=== PATIENT | male | born 1980 | race Caucasian/White ===

== ENCOUNTER → 2018-02-21 15:32 | Outpatient (POV) | payer BC, SELFPAY | PROVIDERS: Visit Provider Dermatology | DX: Z00.00 Encounter for general adult medical examination without abnormal findings (principal) ==

== ENCOUNTER → 2018-03-21 15:17 | Outpatient (POV) | payer BC, SELFPAY | PROVIDERS: Visit Provider Dermatology | DX: Z00.00 Encounter for general adult medical examination without abnormal findings (principal) ==

== ENCOUNTER → 2018-03-30 07:57 | Outpatient (CLI) | payer BC, SELFPAY ==
[2018-03-30 09:12] LABS: Hemoglobin A1C 5.4 % (0.0-7.0)
[2018-03-30 09:33] LABS: Alanine Aminotransferase 48 U/L (12-78); Albumin/Globulin Ratio 1.3 (1.1-1.8); Alkaline Phosphatase 71 U/L (46-116); Anion Gap 13.2 mEq/L (5-15); Aspartate Amino Transferase 34 U/L (15-37); Blood Urea Nitrogen 14 mg/dL (7-18); Calcium 9.1 mg/dL (8.5-10.1); Carbon Dioxide 30 mmol/L (21.0-32.0); Chloride 102 mmol/L (98-107); Chol/HDL Ratio 4.3 (1-3.5); Cholesterol 213 mg/dL (140-200); Creatinine,Serum 1.07 mg/dL (0.70-1.30); Estimated Glomerular Filt Rate 77 ml/min (>60); GFR (African American) 93 ML/MIN (>60); Globulin 3.1 gm/dl (1.3-3.2); Glucose 104 mg/dL (74-106); HDL Cholesterol 49 mg/dL (27-67); LDL Cholesterol 136 mg/dL (0-130); Potassium 4.2 mmoL/L (3.5-5.1); Sodium 141 mmol/L (136-145); Total Protein,Serum 7.1 gm/dL (6.4-8.2); Triglycerides 138 mg/dL (30-200); VLDL Cholesterol 28 mg/dL (0-40)
== END ==
PROVIDERS: Visit Provider Family Medicine
DX: R73.01 Impaired fasting glucose (principal); E78.5 Hyperlipidemia, unspecified
CPT/HCPCS: 36415; 80053; 80061; 83036

== ENCOUNTER → 2019-01-23 14:50 | Outpatient (CLI) | payer BC, SELFPAY ==
--- NOTE | 2019-01-23 14:54 | XR_ITS ---
PROCEDURE: XR CHEST 2V CLINICAL HISTORY: dyspnea Chest pain COMPARISON: No exams were available for comparison FINDINGS: The cardiomediastinal silhouette and pulmonary vascularity are within normal limits. The lungs are clear without infiltrates, suspicious nodules, or pleural effusions. No acute bony abnormalities. IMPRESSION: No acute findings. Dictated by: Bhavin Galvez MD 01/23/2019 15:52 Electronically signed by Bhavin Galvez MD in [place] 01/23/2019 15:52
== END ==
PROVIDERS: PCP Family Medicine; Visit Provider Urology
DX: R06.09 Other forms of dyspnea (principal)
CPT/HCPCS: 71046

== ENCOUNTER → 2019-02-01 11:53 | Outpatient (CLI) | payer BC, SELFPAY ==
--- NOTE | 2019-02-01 | CA_ITS ---
APPROVED REPORT Exam: Exercise Treadmill Technologist: Vida Nam, Ht: 5 ft 8 in Wt: 175 lbs BSA: 1.93 m2 HR: 67 bpm BP: 116/78 mmHg Rhythm: NORMAL SINUS RHYTHM,INCOMPLETE LBBB Medical History Medical History: Hyperlipidemia Medications: Lovastatin,,,,, Allergies: No known drug allergies, No known drug allergies Cardiac Risk Factors: Hyperlipidemia, FHX of CAD Stress Test Details Test: Exercise stress testing was performed using a Rhys protocol. HR Resting HR: 78 bpm Max Heart Rate (APMHR): 181 bpm Max HR Achieved: 180 bpm Target HR (85% APMHR): 153 bpm % of APMHR: 99 Recovery HR: 144 bpm BP Resting BP: 116.0/78.0 mmHg Max BP: 172.0/84.0 mmHg Recovery BP: 120.0/80.0 mmHg ECG Resting ECG: NSR/ICRBBB Clinical Exercise duration: 14:11 min Highest Stage Achieved: Exercise capacity: 14.8 METs Stress ECG Conclusion PATIENT EXERCISED 14:11 ON RHYS PROTOCOL WITH MAX HEART RATE 180 BPM WHICH IS 99% OF PM FOR AGE. MAX BP 172/84. METS = 14.8. TEST STOPPED DUE TO SOA AND FATIGUE. PATIENT HAD SHARP CHEST PAIN BELOW LEFT BREAST. OCCASIONAL FUSION BEAT. NORMAL ST RESPONSE TO EXERCISE. SHARP CHEST PAIN WITH NORMAL EKG'S DURING EXERCISE. GOOD EXERCISE TOLERANCE. MYOVIEW IMAGES REPORTED SEPARATELY Test Summary Stage 5 02:11 14.0 3.9 176 . . . . REST . . . . . . . Sitting REST 07:03 0.0 0.0 78 . 116/ 78 . . Stage 1 01:00 10.0 1.7 93 . . . . Stage 1 02:00 10.0 1.7 98 . . . . Stage 1 03:00 10.0 1.7 99 . 138/ 80 . . Stage 2 01:00 12.0 2.5 110 . . . . Stage 2 02:00 12.0 2.5 115 . . . . Stage 2 03:00 12.0 2.5 115 . 154/ 80 . . Stage 3 01:00 14.0 3.4 129 . . . . Stage 3 02:00 14.0 3.4 135 . . . . Stage 3 03:00 14.0 3.4 138 . 172/ 84 . . Stage 4 01:00 16.0 4.2 155 . . . . Stage 4 02:00 16.0 4.2 162 . . . . Stage 4 03:00 16.0 4.2 166 . . . . Stage 5 01:00 18.0 5.0 174 . . . . Stage 5 . . . . . . . Cardiolite injected Stage 5 . . . . . . . Protocol changed to Manual Treadmill Stage 5 02:00 16.0 3.9 178 . . . . Stage 5 02:11 14.0 3.9 176 . . . Stop exercise at 14:11 RECOVERY . . . . . . . Chest pain RECOVERY 01:00 0.0 0.0 144 . . . . RECOVERY 02:00 0.0 0.0 118 . 120/ 80 . . RECOVERY 03:00 0.0 0.0 112 . 144/ 85 . . RECOVERY 04:00 0.0 0.0 110 . 132/ 84 . . RECOVERY 05:00 0.0 0.0 106 . 141/ 78 . . RECOVERY 06:00 0.0 0.0 106 . 141/ 78 . . RECOVERY 07:00 0.0 0.0 108 . 128/ 77 . . RECOVERY 08:00 0.0 0.0 108 . 128/ 77 . . RECOVERY 08:21 0.0 0.0 107 . 128/ 77 . . Electronically signed by : Oscar Gonzalez, 02/02/2019 14:39:40
--- NOTE | 2019-02-01 11:57 | NM_ITS ---
APPROVED REPORT Exam: Nuclear Stress Test Indication: Chest pain, SOB, Fatigue, High cholesterol, Family history Patient Location: Outpatient Stress Tech: Emilie Nam [place] Tech:Angie Oliver, ARRT, RT (R)(N) Ht: 5 ft 8 in Wt: 175 lbs HR: 67 bpm BP: 116/78 mmHg BSA: 1.93 m2 BMI: 26.6 History: Chest pain, SOB, Fatigue, High cholesterol, Family history Procedure: Patient exercised on Rhys protocol 14:11 minutes and sec, resting heart rate 67 bpm, resting blood pressure 116/78 mmHg, with exercise maximum heart rate achived was 180 bpm which is % of the maximum predicted heart rate and blood pressure was 154/80 mmHg. Test was stopped due to SOA and leg fatigue. Patient has exercise capacity, achieved 14.8 METs of workload on treadmill, the blood pressure response to exercise was . Cardiac Stress and Resting SPECT Images: Cardiac Stress and Resting SPECT images were obtained using technetium 99m Myoview 29.2 mCi stress and 10.13 mCi at rest. EF normal at 66% No fixed or reversible defects. No evidence of ischemia or infarction Conclusion: EF normal at 66% No fixed or reversible defects. No evidence of ischemia or infarction Electronically signed by : Bhavin Galvez MD 02/02/2019 17:26:49
--- NOTE | 2019-02-01 14:33 | HMH.ITSHM ---
Current Home Medications as stated by this patient Darryn Alcantar or senior outside sales representative. []LOVASTATIN
== END ==
PROVIDERS: PCP Family Medicine; Visit Provider Internal Medicine
DX: R06.09 Other forms of dyspnea (principal); R07.9 Chest pain, unspecified; E78.5 Hyperlipidemia, unspecified; Z82.49 Family history of ischemic heart disease and other diseases of the circulatory system
CPT/HCPCS: 78452; 93017; 93306; A9502

== ENCOUNTER 2019-05-31 17:30 | Outpatient (RCR) | payer BC, SELFPAY | END 2019-05-31 18:25 | disposition home or self-care (01) | LOC: PT 17:30 | PROVIDERS: PCP Family Medicine; Visit Provider Physician Assistant | DX: M54.5 Low back pain (principal) | CPT/HCPCS: 97010; 97012; 97014; 97110; 97163; G0283 ==

== ENCOUNTER 2019-10-15 22:28 | Emergency (ER) | payer OTHER, SELFPAY ==
[2019-10-15 22:28] VITALS: BP 155/104; PULSE 71; RESP 16; TEMP 36.8; O2SAT 96; BMI 27.3
[2019-10-15 22:52] LABS: Basophils # 0.1 K/mm3 (0-0.2); Basophils % 1.2 % (0.1-2.0); Eosinophils # 0.3 K/mm3 (0.0-0.4); Eosinophils % 2.5 % (0.1-12.0); Hematocrit 46.9 % (42.0-52.0); Hemoglobin 17.1 g/dL (14.1-18.0); Lymphocytes # 3.4 K/mm3 (0.7-4.5); Lymphocytes % 33.9 % (10-50); Mean Corpuscular HGB Conc 36.3 g/dL (31.8-35.4); Mean Corpuscular Hemoglobin 32.4 pg (27.0-31.2); Mean Corpuscular Volume 89.1 fl (80-94); Mean Platelet Volume 7.8 fl (7.4-10.4); Monocytes # 0.8 K/mm3 (0.1-1.0); Neutrophils # 5.5 K/mm3 (1.8-7.8); Neutrophils % 54.4 % (37.0-80.0); Platelet Count 237 K/mm3 (142-424); Red Blood Count 5.27 M/mm3 (4.60-6.20); Red Cell Distribution Width 12.6 % (11.5-17.5)
[2019-10-15 22:53] LABS: Chloride 101 mmol/L (98-107)
[2019-10-15 22:54] LABS: Sodium 139 mmol/L (136-145)
[2019-10-15 22:56] LABS: Alanine Aminotransferase 22 U/L (12-78); Alkaline Phosphatase 78 U/L (38-126); Aspartate Amino Transferase 32 U/L (17-59); Bilirubin,Total 0.8 mg/dl (0.2-1.3); Blood Urea Nitrogen 15 mg/dl (9-20); Carbon Dioxide 28 mmol/L (22.0-30.0); Creatinine Clearance Estimated 113 mL/min (50-200); Estimated Glomerular Filt Rate 83 ml/min (>60); GFR (African American) 100 ML/MIN (>60)
[2019-10-15 22:57] LABS: Albumin Level 4.6 g/dl (3.5-5.0); Albumin/Globulin Ratio 1.5 (1.1-1.8); Calcium 9.2 mg/dl (8.4-10.2); Glucose 110 mg/dl (74-100); Total Protein,Serum 7.6 g/dl (6.3-8.2)
--- NOTE | 2019-10-15 23:16 | HMH.EDALLER ---
ED Disposition Clinical Impression: Urticaria Allergic reaction Qualifiers: Encounter type: initial encounter Qualified Code(s): T78.40XA - Allergy, unspecified, initial encounter Disposition: Home, Self-Care Condition on Discharge: Good Instructions: DI for General Allergic Reactions Additional Instructions: call pcp in am Prescriptions: predniSONE [Prednisone 20mg Tab] 20 mg PO BID #10 tab Transmission Status: Pending to [id number] Referrals: Young Estrada MD [Primary Care Provider] - - Critical Care Critical Care Time: No Attestation: On 10/15/19, the high probability of a clinically significant, sudden or life threatening deterioration of the following system(s) required my full and direct attention, intervention and personal management. The time I documented below is in addition to time spent performing reported procedures but includes the following listed in this critical care notation. Medical Decision Making - Medical Records Medical records reviewed: Yes: I reviewed the patient's medical records. - Fredis Inquiry Pt receiving controlled substance: No Vital Signs: 10/15/19 22:28 Temperature 98.2 F Temperature Source Oral Pulse Rate [Left Radial] 71 Respiratory Rate 16 Blood Pressure [Right Arm] 155/104 H Blood Pressure Mean [Right Arm] 121 Blood Pressure Source [Right Arm] Automatic Cuff Blood Pressure Position [Right Arm] Sitting 02 Sat by Pulse Oximetry 96 Oxygen Delivery Method Room Air - Lab Data Lab results reviewed: Yes: I reviewed the patient's lab results. Lab Results 10/15/19 22:37: WBC 10.0, RBC 5.27, Hgb 17.1, Hct 46.9, MCV 89.1, MCH 32.4 H, MCHC 36.3 H, RDW 12.6, Plt Count 237, MPV 7.8, Neut % (Auto) 54.4, Lymph % (Auto) 33.9, [place] % (Auto) 8.0, Eos % (Auto) 2.5, Baso % (Auto) 1.2, Neut # (Auto) 5.5, Lymph # (Auto) 3.4, [place] # (Auto) 0.8, Eos # (Auto) 0.3, Baso # (Auto) 0.1 10/15/19 22:37: Sodium 139, Potassium 4.0, Chloride 101, Carbon Dioxide 28, Anion Gap 14.0, BUN 15, Creatinine 1.00, Estimated Creat Clear 113, Estimated GFR 83, Est GFR ( Amer) 100, Glucose 110 H, Calcium 9.2, Total Bilirubin 0.8, AST 32, ALT 22, Alkaline Phosphatase 78, Total Protein 7.6, Albumin 4.6, Globulin 3.0, Albumin/Globulin Ratio 1.5 Result diagrams: 10/15/19 22:37 10/15/19 22:37 Orders (Tests/Meds): ED MEDICATIONS Generic Name Dose Route Start Last Admin Trade Name Freq PRN Reason Stop Dose Admin Sodium Chloride 1,000 mls @ 999 mls/hr 10/15/19 23:00 Sod Chlor 0.9% 1000ml Bag IV 10/16/19 00:00 .Q1H1M DEAN Sodium Chloride 8 ml 10/15/19 22:46 Sodium Chloride 0.9% 10ml Vial IV 11/14/19 22:45 NEEDED PRN dilute pepcid Discontinued Medications Generic Name Dose Route Start Last Admin Trade Name Freq PRN Reason Stop Dose Admin Diphenhydramine HCl 25 mg 10/15/19 22:46 10/15/19 22:50 Benadryl 50mg/1ml Vial IV 10/15/19 22:47 25 mg ONCE ONE Administration Famotidine 20 mg 10/15/19 22:46 10/15/19 22:50 Pepcid 20mg/2ml Vial IV 10/15/19 22:47 20 mg ONCE ONE Administration Methylprednisolone Sodium Succinate 125 mg 10/15/19 22:46 10/15/19 22:50 Solu-Medrol 125mg/2ml Vial IV 10/15/19 22:47 125 mg ONCE ONE Administration Allergic React/Insect Bite HPI - General Chief complaint: Allergic Reaction Stated complaint: Hives Time Seen by Provider: 10/15/19 22:45 Mode of Arrival - ED Triage: Ambulatory Source of Information: Patient, Spouse, Medical Record Limitations: No Limitations - History of Present Illness HPI narrative: after going to bed dev hives and itching with no tongue swelling but lips swelling MD complaint: allergic reaction, hives Onset (ago): hour(s) Exposure: unknown Symptoms: rash, itching, lip swelling Treatment prior to arrival: none Allergies/Adverse Reactions: Allergies Allergy/AdvReac Type Severity Reaction Status Date / Time No Known Allergies Allergy Verified
--- NOTE | 2019-10-15 23:30 | PC.NURSE ---
this nurse reassessed pt. pt reports relief of itchiness and soreness of upper lip. redness on trunk and extremities has gone done exponentially at this time
[2019-10-16 00:07] VITALS: BP 127/83; PULSE 69; RESP 16; TEMP 36.7; O2SAT 93
== END 2019-10-16 00:12 | disposition home or self-care (01) ==
PROVIDERS: Emergency Provider Emergency Medicine; PCP Family Medicine
DX: L50.0 Allergic urticaria (principal); T78.40XA Allergy, unspecified, initial encounter; E78.5 Hyperlipidemia, unspecified
CPT/HCPCS: 80053; 85025; 96374; 96375; 99281; 99282

== ENCOUNTER 2020-03-07 10:05 | Emergency (ER) | payer OTHER, SELFPAY ==
[2020-03-07 10:15] VITALS: BP 156/86; PULSE 98; RESP 18; TEMP 36.9; O2SAT 99; BMI 27.3
--- NOTE | 2020-03-07 10:22 | HMH.EDUTC ---
[facility] [place] Disposition Clinical Impression: Viral syndrome Right otitis media Qualifiers: Otitis media type: suppurative Chronicity: acute Recurrence: non-recurrent Spontaneous tympanic membrane rupture: without spontaneous rupture Qualified Code(s): H66.001 - Acute suppurative otitis media without spontaneous rupture of ear drum, right ear Disposition: Home, Self-Care Condition on Discharge: Good Instructions: DI for Viral Syndrome Additional Instructions: Drink plenty of fluids. Take tylenol for pain or fever. Return if you begin to have difficulty breathing. Follow up with your regular doctor. GO TO THE ER FOR ANY WORSENING SYMPTOMS Prescriptions: Benzonatate [Tessalon Perle 100mg Cap] 100 mg PO TIDP PRN #30 cap PRN Reason: Cough Transmission Status[facility] Azithromycin [Z-Aden 250mg Tab*] 250 mg PO UD DOSE PK #6 tab Transmission Status: [facility] Referrals: Young Estrada MD [Primary Care Provider] - Time of Disposition: 10:29 Medical Decision Making - Medical Records Medical records reviewed: No: I reviewed the patient's medical records. - Fredis Inquiry Pt receiving controlled substance: No Vital Signs: 03/07/20 10:15 03/07/20 10:32 Temperature 98.4 F 98.4 F Temperature Source Oral Oral Pulse Rate 98 H Pulse Rate [Radial] 98 H Respiratory Rate 18 18 Blood Pressure 156/86 H Blood Pressure [Right Arm] 156/86 H Blood Pressure Mean [Right Arm] 109 Blood Pressure Source Automatic Cuff Blood Pressure Source [Right Arm] Automatic Cuff Blood Pressure Position Sitting Blood Pressure Position [Right Arm] Sitting 02 Sat by Pulse Oximetry 99 Oxygen Delivery Method Room Air Room Air - Lab Data Lab results reviewed: Yes: I reviewed the patient's lab results. Lab Results 03/07/20 10:17: Influenza Type A Ag Negative, Influenza Type B Ag Negative Orders (Tests/Meds): ORDERS Category Date Time Status Covid-19 Nasal PCR Sendout Antoine Routine Lab 03/07/20 10:15 Received [facility] [place] HPI - General Stated complaint: headache, fever, cough Time Seen by Provider: 03/07/20 10:22 Mode of Arrival: Ambulatory Source of Information: Patient Limitations: No Limitations Description of Symptoms (Recalled from Triage Doc. by RN): Headache, fever, cough, body aches, bilateral ear pain x 2 days HEENT Symptoms (Recalled from RN notes): Yes Resp Symptoms (Recalled from RN notes): No Skin Symptoms (Recalled from RN notes): No MS Symptoms (Recalled from RN notes): No Functional Status (Recalled from RN notes): wnl - History of Present Illness Provider Complaint: He c/o fever up to 99.9, cough, right ear pain for the past 2 days. - Related Data Home Medications Medication Instructions Recorded Confirmed lovastatin 40 mg tablet 40 mg PO DAILY 01/23/19 02/07/19 Previous Rx's Medication Instructions Recorded Oseltamivir Phosphate [Tamiflu 75 mg PO BID #10 cap 06/05/19 75mg Capsule] predniSONE [Prednisone 20mg 20 mg PO BID #10 tab 10/16/19 Tab] Azithromycin [Z-Aden 250mg Tab*] 250 mg PO UD DOSE PK #6 tab 03/07/20 Benzonatate [Tessalon Perle 100mg 100 mg PO TIDP PRN #30 cap 03/07/20 Cap] Allergies Allergy/AdvReac Type Severity Reaction Status Date / Time No Known Allergies Allergy Verified 02/07/19 13:58 - Worker's Comp Is this a Worker's Comp case?: No [facility] History - Hepatitis A Screen Drug use history?: No High risk sexual behaviors?: No History of sexually transmitted infection?: No Currently employed?: No Childcare worker?: No Do you have indoor plumbing?: Yes Do you have electricity?: Yes Attestation statement:: This patient has been screened for Hepatitis A risk factors. I have reviewed the patient's past medical history: Yes Medical History: Reports:: Hyperlipidemia Denies:: Cancer, Diabetes Mellitus Type 1, Diabetes Mellitus Type 2, MRSA Other Surgeries: Yes: Appendectomy Amputatio
[2020-03-07 10:32] VITALS: BP 156/86; PULSE 98; RESP 18; TEMP 36.9; O2SAT 99
[2020-03-07 10:37] LABS: UTC Influenza A Antigen Negative (Negative)
[2020-03-07 10:38] LABS: UTC Influenza B Antigen Negative (Negative)
[2020-03-08 17:44] LABS: Covid-19 Nasal PCR Sendout Lex Not Detected
== END 2020-03-07 10:36 | disposition home or self-care (01) ==
PROVIDERS: Emergency Provider Nurse Practitioner Family; PCP Family Medicine
DX: Z20.828 Contact with and (suspected) exposure to other viral communicable diseases (principal); B34.9 Viral infection, unspecified; H66.001 Acute suppurative otitis media without spontaneous rupture of ear drum, right ear; E78.5 Hyperlipidemia, unspecified; Z79.899 Other long term (current) drug therapy
CPT/HCPCS: 87804; 99201; U0004

== ENCOUNTER 2020-03-08 18:08 | Emergency (ER) | payer OTHER, SELFPAY ==
[2020-03-08 18:09] VITALS: BP 125/88; PULSE 110; RESP 28; TEMP 38.4; O2SAT 98; BMI 25.1
--- NOTE | 2020-03-08 18:44 | XR_ITS ---
PROCEDURE: XR CHEST PORTABLE CLINICAL HISTORY: sob Cough and shortness of breath COMPARISON: CR XR CHEST 2V from 01/23/2019 FINDINGS: The cardiomediastinal silhouette and pulmonary vascularity are within normal limits. The lungs are clear without infiltrates, suspicious nodules, or pleural effusions. No acute bony abnormalities. IMPRESSION: No acute findings. Dictated by: Bhavin Galvez MD 03/08/2020 22:14 Bhavin Galvez MD in [place] 03/08/2020 22:14
[2020-03-08 18:52] LABS: Basophils % 0.5 % (0.1-2.0); Eosinophils # 0.1 K/mm3 (0.0-0.4); Hematocrit 46.6 % (42.0-52.0); Lymphocytes # 0.5 K/mm3 (0.7-4.5); Lymphocytes % 5.7 % (10-50); Mean Corpuscular HGB Conc 34.3 g/dL (31.8-35.4); Mean Corpuscular Hemoglobin 30.3 pg (27.0-31.2); Mean Corpuscular Volume 88.3 fl (80-94); Mean Platelet Volume 7.1 fl (7.4-10.4); Monocytes # 0.5 K/mm3 (0.1-1.0); Monocytes % 5.2 % (1.7-9.3); Neutrophils # 7.5 K/mm3 (1.8-7.8); Neutrophils % 87.5 % (37.0-80.0); Platelet Count 175 K/mm3 (142-424); Red Blood Count 5.28 M/mm3 (4.60-6.20); Red Cell Distribution Width 12.2 % (11.5-17.5); White Blood Count 8.5 K/mm3 (4.8-10.8)
[2020-03-08 18:58] LABS: MANUAL DIFFERENTIAL MANUAL DIFFERENTIAL (MANUAL DIFF); Potassium 4.2 mmoL/L (3.5-5.1); Sodium 137 mmol/L (136-145)
[2020-03-08 18:59] LABS: Chloride 103 mmol/L (98-107)
[2020-03-08 19:01] LABS: Alanine Aminotransferase 90 U/L (12-78); Albumin Level 4.6 g/dl (3.5-5.0); Albumin/Globulin Ratio 1.4 (1.1-1.8); Alkaline Phosphatase 98 U/L (38-126); Anion Gap 12.2 mEq/L (5-15); Aspartate Amino Transferase 86 U/L (17-59); Bilirubin,Total 0.9 mg/dl (0.2-1.3); Blood Urea Nitrogen 11 mg/dl (9-20); Calcium 9.4 mg/dl (8.4-10.2); Carbon Dioxide 26 mmol/L (22.0-30.0); Creatinine Clearance Estimated 109 mL/min (50-200); Estimated Glomerular Filt Rate 82 ml/min (>60); GFR (African American) 100 ML/MIN (>60); Globulin 3.2 g/dL (1.3-3.2); Glucose 147 mg/dl (74-100); Total Protein,Serum 7.8 g/dl (6.3-8.2)
--- NOTE | 2020-03-08 19:01 | HMH.EDGENADL ---
ED Disposition Clinical Impression: Acute viral syndrome Acute bronchiolitis Qualifiers: Bronchiolitis organism: unspecified organism Qualified Code(s): J21.9 - Acute bronchiolitis, unspecified Disposition: Home, Self-Care Condition on Discharge: Good Instructions: Acute Bronchitis Prescriptions: Promethazine HCl/Codeine [Phenergan w/Codeine 6.25mg/10mg 5mL Udc] 5 ml PO TID #120 syrup Prescription Printed Albuterol Sulfate [Proair Hfa] 8.5 gm IH TID #1 [email or web address] Prescription Printed Referrals: Young Estrada MD [Primary Care Provider] - - Critical Care Critical Care Time: No Attestation: On 03/08/20, the high probability of a clinically significant, sudden or life threatening deterioration of the following system(s) required my full and direct attention, intervention and personal management. The time I documented below is in addition to time spent performing reported procedures but includes the following listed in this critical care notation. Medical Decision Making - Medical Records Medical records reviewed: Yes: I reviewed the patient's medical records. - Fredis Inquiry Pt receiving controlled substance: No Vital Signs: 03/08/20 18:09 Temperature 101.2 F H Temperature Source Oral Pulse Rate [Radial] 110 H Respiratory Rate 28 H Blood Pressure [Right Arm] 125/88 Blood Pressure Mean [Right Arm] 100 Blood Pressure Position [Right Arm] Sitting 02 Sat by Pulse Oximetry 98 Oxygen Delivery Method Room Air - Lab Data Lab Results 03/08/20 18:42: WBC 8.5, RBC 5.28, Hgb 16.0, Hct 46.6, MCV 88.3, MCH 30.3, MCHC 34.3, RDW 12.2, Plt Count 175, MPV 7.1 L, Neut % (Auto) 87.5 H, Lymph % (Auto) 5.7 L, [place] % (Auto) 5.2, Eos % (Auto) 1.0, Baso % (Auto) 0.5, Neut # (Auto) 7.5, Lymph # (Auto) 0.5 L, [place] # (Auto) 0.5, Eos # (Auto) 0.1, Baso # (Auto) 0.0, Total Counted 100, Neutrophils % (Manual) 88 H, Lymphocytes % (Manual) 6 L, Monocytes % (Manual) 6, Platelet Estimate Normal, RBC Morphology Normal 03/08/20 18:42: Sodium 137, Potassium 4.2, Chloride 103, Carbon Dioxide 26, Anion Gap 12.2, BUN 11, Creatinine 1.00, Estimated Creat Clear 109, Estimated GFR 82, Est GFR ( Amer) 100, Glucose 147 H, Calcium 9.4, Total Bilirubin 0.9, AST 86 H, ALT 90 H, Alkaline Phosphatase 98, Total Protein 7.8, Albumin 4.6, Globulin 3.2, Albumin/Globulin Ratio 1.4 Result diagrams: 03/08/20 18:42 03/08/20 18:42 Orders (Tests/Meds): ED MEDICATIONS Generic Name Dose Route Start Last Admin Trade Name Freq PRN Reason Stop Dose Admin Sodium Chloride 1,000 mls @ 999 mls/hr 03/08/20 19:00 03/08/20 19:24 Sod Chlor 0.9% 1000ml Bag IV 03/08/20 20:00 999 mls/hr .Q1H1M DEAN Administration Discontinued Medications Generic Name Dose Route Start Last Admin Trade Name Freq PRN Reason Stop Dose Admin Ketorolac Tromethamine 30 mg 03/08/20 18:49 03/08/20 19:24 Ketorolac 30mg/Ml Vial IM 03/08/20 18:50 30 mg ONCE ONE Administration Promethazine HCl/Codeine 5 ml 03/08/20 18:49 03/08/20 19:24 Promethazine W/Codeine 6.25mg/10mg 5ml Udc PO 03/08/20 18:50 5 ml ONCE ONE Administration ORDERS Category Date Time Status XR chest portable Stat Exams 03/08/20 18:44 Taken - Reevaluation(s) Time: 19:31 Reevaluation #1: On reevaluation, patient is feeling much better. Coughing has improved. Patient's coronavirus was found to be negative as well as influenza. I did instruct patient that he needs to continue his full completion of his antibiotic regimen. He will be discharged with antitussives. Patient does need reexamination in 48 hours. He was given strict return precautions. Verbalized understanding. Medical Decision Narrative: 40-year-old male presented to the emergency department with cough and difficulty breathing. The patient was seen yesterday and he was placed on azithromycin as well as a cough suppressants. He states he is unsure of his coronavirus status. Patient does have a fev
[2020-03-08 19:10] LABS: Lymphocytes % 6 % (10-50); Monocytes % 6 % (2-9); Neutrophils % 88 % (42-76); Platelet Estimate Normal; RBC Morphology Normal; Total Cells Counted 100
[2020-03-08 19:44] VITALS: BP 112/87; PULSE 87; RESP 12; TEMP 36.8; O2SAT 99
== END 2020-03-08 19:44 | disposition home or self-care (01) ==
PROVIDERS: Emergency Provider Emergency Medicine; PCP Family Medicine
DX: J21.9 Acute bronchiolitis, unspecified (principal); B34.9 Viral infection, unspecified; E78.5 Hyperlipidemia, unspecified
CPT/HCPCS: 71045; 80053; 85007; 85025; 96365; 96375; 99282

== ENCOUNTER 2020-07-07 18:01 | Emergency (ER) | payer OTHER, SELFPAY ==
[2020-07-07 18:15] VITALS: BP 133/92; PULSE 80; RESP 16; TEMP 37.1; O2SAT 98; BMI 28.2
[2020-07-07 18:38] VITALS: BP 127/85; PULSE 88; RESP 14; TEMP 36.6
--- NOTE | 2020-07-07 18:38 | HMH.EDUTC ---
[facility] [place] Impression: Right otitis media Qualifiers: Otitis media type: suppurative Chronicity: acute Recurrence: non-recurrent Spontaneous tympanic membrane rupture: without spontaneous rupture Qualified Code(s): H66.001 - Acute suppurative otitis media without spontaneous rupture of ear drum, right ear Sinusitis Qualifiers: Sinusitis location: unspecified location Chronicity: acute Recurrence: non-recurrent Qualified Code(s): J01.90 - Acute sinusitis, unspecified Disposition: Home, Self-Care Condition on Discharge: Good Instructions: Middle Ear Infection, DI for Sinusitis Additional Instructions: Drink plenty of fluids. Take tylenol or ibuprofen for pain or fever. Take the medications as directed. Follow up with your regular doctor. GO TO THE ER FOR ANY WORSENING SYMPTOMS Prescriptions: Amoxicillin/Potassium Clav [Augmentin 875-125 Tablet] 1 tab PO Q12H 10 Days #20 tab Transmission Status: Received by [facility] predniSONE [Deltasone 10mg tablet] 10 mg PO BID 3 Days #6 tab Transmission Status: Received by [facility] Referrals: Young Estrada MD [Primary Care Provider] - Time of Disposition: 18:44 Medical Decision Making - Medical Records Medical records reviewed: No: I reviewed the patient's medical records. - Fredis Inquiry Pt receiving controlled substance: No Vital Signs: 07/07/20 18:15 07/07/20 18:38 Temperature 98.7 F 98 F Temperature Source Oral Pulse Rate 88 Pulse Rate [Right] 80 Respiratory Rate 16 14 Blood Pressure 127/85 Blood Pressure [Right Arm] 133/92 H Blood Pressure Mean [Right Arm] 105 Blood Pressure Source [Right Arm] Automatic Cuff Blood Pressure Position [Right Arm] Sitting 02 Sat by Pulse Oximetry 98 [facility] [place] - General Stated complaint: Right side of head and Ear pain Time Seen by Provider: 07/07/20 18:38 Mode of Arrival: Ambulatory Source of Information: Patient Limitations: No Limitations Description of Symptoms (Recalled from Triage Doc. by RN): pt is having a R ear ache that aches all into the right side of his face and head. HEENT Symptoms (Recalled from RN notes): Yes (R ear and face pressure and pain) Resp Symptoms (Recalled from RN notes): No Skin Symptoms (Recalled from RN notes): No MS Symptoms (Recalled from RN notes): No Functional Status (Recalled from RN notes): na - History of Present Illness Provider Complaint: He states that he has had right ear pain and right sided sinus pressure and tenderness for the past 2 days. - Related Data Home Medications Medication Instructions Recorded Confirmed lovastatin 40 mg tablet 40 mg PO DAILY 01/23/19 02/07/19 Previous Rx's Medication Instructions Recorded Oseltamivir Phosphate [Tamiflu 75 mg PO BID #10 cap 06/05/19 75mg Capsule] predniSONE [Prednisone 20mg 20 mg PO BID #10 tab 10/16/19 Tab] Azithromycin [Z-Aden 250mg Tab*] 250 mg PO UD DOSE PK #6 tab 03/07/20 Benzonatate [Tessalon Perle 100mg 100 mg PO TIDP PRN #30 cap 03/07/20 Cap] Albuterol Sulfate [Proair Hfa] 8.5 gm IH TID #1 hfa.aer.ad 03/08/20 Promethazine HCl/Codeine 5 ml PO TID #120 syrup 03/08/20 [Phenergan w/Codeine 6.25mg/10mg 5mL Udc] Amoxicillin/Potassium Clav 1 tab PO Q12H 10 Days #20 tab 07/07/20 [Augmentin 875-125 Tablet] predniSONE [Deltasone 10mg tablet] 10 mg PO BID 3 Days #6 tab 07/07/20 Allergies Allergy/AdvReac Type Severity Reaction Status Date / Time No Known Allergies Allergy Verified 07/07/20 18:18 - Worker's Comp Is this a Worker's Comp case?: No [facility] [place] History - Hepatitis A Screen Drug use history?: No High risk sexual behaviors?: No History of sexually transmitted infection?: No Currently employed?: No Childcare worker?: No Do you have indoor plumbing?: Yes Do you have electricity?: Yes Attestation statement:: This patient has been screened for Hepatitis A risk factors. I have reviewed the patient's past medical
== END 2020-07-07 18:54 | disposition home or self-care (01) ==
PROVIDERS: Emergency Provider Nurse Practitioner Family; PCP Family Medicine
DX: H66.001 Acute suppurative otitis media without spontaneous rupture of ear drum, right ear (principal); J01.90 Acute sinusitis, unspecified; Z79.899 Other long term (current) drug therapy; E78.5 Hyperlipidemia, unspecified
CPT/HCPCS: 99202; G0463

== ENCOUNTER → 2020-10-31 08:19 | Outpatient (CLI) | payer OTHER, SELFPAY ==
--- NOTE | 2020-10-31 08:47 | US_ITS ---
PROCEDURE: US ABDOMEN COMPLETE CLINICAL INDICATION: ABD PAIN Abdominal pain, palpable area to the right of the umbilical region. COMPARISON: No exams were available for comparison FINDINGS: PANCREAS: Pancreatic body and head have an unremarkable sonographic appearance. The tail is not well visualized due to overlying bowel gas. LIVER: No focal liver lesions demonstrated. Homogeneous echogenicity. No intrahepatic biliary ductal dilatation evident. There is appropriate direction of blood flow within a non dilated portal vein RIGHT KIDNEY: Unremarkable. Normal size and echogenicity. No hydronephrosis LEFT KIDNEY: Unremarkable. Normal size and echogenicity. No hydronephrosis GALLBLADDER: No gallstones, gallbladder wall thickening, pericholecystic fluid, or biliary dilatation. AORTA: No evidence of aneurysmal dilatation. SPLEEN: Unremarkable. Normal size and echogenicity ASCITES: None demonstrated. Evaluation of the abdominal wall at the palpable area of concern a shows a small heterogeneous area of slight increased echogenicity etiology indeterminate possibly due to an area of lipomatosis involvement. IMPRESSION: There is slight increased echogenicity to the right the umbilical region at the area of palpable concern within the subcutaneous tissues. This is nonspecific and of questionable clinical significance. Possibly due to an area of fatty infiltration. If symptoms persist, CT or MRI may provide further evaluation. Otherwise negative abdominal ultrasound Dictated by: Bhavin Galvez MD 10/31/2020 13:54 Bhavin Galvez MD in [place] 10/31/2020 13:54
== END ==
PROVIDERS: PCP Family Medicine; Visit Provider Family Medicine
DX: R10.33 Periumbilical pain (principal)
CPT/HCPCS: 76700

== ENCOUNTER 2021-02-15 10:23 | Emergency (ER) | payer OTHER, SELFPAY ==
[2021-02-15 10:30] VITALS: BP 148/88; PULSE 82; RESP 18; TEMP 37.1; O2SAT 97; BMI 29.0
[2021-02-15 10:44] LABS: UTC Strep Screen (Rapid) Negative (Negative)
--- NOTE | 2021-02-15 11:07 | HMH.EDUTC ---
[facility] [place] Disposition Clinical Impression: Sinusitis Qualifiers: Sinusitis location: unspecified location Chronicity: unspecified Qualified Code(s): J32.9 - Chronic sinusitis, unspecified Disposition: Home, Self-Care Condition on Discharge: Good Instructions: Sinusitis, DI for Sinusitis Additional Instructions: *Monitor Temp, Over the counter Motrin or Tylenol as directed/as needed Tylenol every 4 hours and Motrin every 6 hours (as long as your family doctor has told you that you can take it) for fever or pain. and straight to ER if unable to lower temp less than 101.0 after medication given *Warm salt water gargles may help to soothe the throat *Throat Lozenges *Warm fluids like tea with honey may help to soothe the throat *Sleep elevated *Humidifier/Vaporizer *Flonase 2 sprays in each nostril daily but be aware that it may take 2-3 days before you notice improvement Take medication as prescribed Return if needed Follow up IMMEDIATELY for new or worsening symptoms or no Noticeable improvement over the next 48-72 hours. 911 for difficulty breathing or swallowing Prescriptions: Amoxicillin/Potassium Clav [Augmentin 875-125 Tablet] 1 tab PO Q12H 7 Days #14 tab Transmission Status: P[facility] to [id number] predniSONE [Deltasone 10mg tablet] 10 mg PO BID 5 Days #10 tab Transmission Status: Pending to [facility] Fluticasone Propionate [Flonase 50mcg nasal spray 16gm] 1 spr NS DAILY #1 each Transmission Status: P[facility] to [facility] Referrals: Young Estrada MD [Primary Care Provider] - As needed Forms: Work/School Release Time of Disposition: 11:16 Medical Decision Making - Fredis Inquiry Pt receiving controlled substance: No Fredis was queried for this patient: No Vital Signs: 02/15/21 10:30 Temperature 98.7 F Temperature Source Oral Pulse Rate [Left Brachial] 82 Respiratory Rate 18 Blood Pressure [Left Arm] 148/88 H Blood Pressure Mean [Left Arm] 108 Blood Pressure Source [Left Arm] Automatic Cuff Blood Pressure Position [Left Arm] Sitting 02 Sat by Pulse Oximetry 97 Oxygen Delivery Method Room Air - Lab Data Lab results reviewed: Yes: I reviewed the patient's lab results. Lab Results 02/15/21 10:39: Strep Scn Rapid Clinic Negative Orders (Tests/Meds): ORDERS Category Date Time Status Strep Screen Confirmation Stat Micro 02/15/21 10:39 Received [facility] [place] HPI - General Stated complaint: sore throat, cough, congestion Time Seen by Provider: 02/15/21 11:08 Mode of Arrival: Ambulatory Source of Information: Patient Limitations: No Limitations Description of Symptoms (Recalled from Triage Doc. by RN): PATIENT C/O HEADACHE, EAR ACHE, COUGH, RUNNY NOSE AND SINUS PRESSURE X 8 DAYS HEENT Symptoms (Recalled from RN notes): Yes Resp Symptoms (Recalled from RN notes): Yes Skin Symptoms (Recalled from RN notes): No MS Symptoms (Recalled from RN notes): No Functional Status (Recalled from RN notes): WNL - History of Present Illness Provider Complaint: Patient states that he hasnt felt well for over a week State that he has been having sinus pain and pressure along with cough, headache and pain in both ears States that today he felt tender around his eyes and his teeth hurt so he came in to get checked out - Related Data Home Medications Medication Instructions Recorded Confirmed lovastatin 40 mg tablet 40 mg PO DAILY 01/23/19 02/15/21 Previous Rx's Medication Instructions Recorded Amoxicillin/Potassium Clav 1 tab PO Q12H 7 Days #14 tab 02/15/21 [Augmentin 875-125 Tablet] Fluticasone Propionate [Flonase 1 spr NS DAILY #1 each 02/15/21 50mcg nasal spray 16gm] predniSONE [Deltasone 10mg tablet] 10 mg PO BID 5 Days #10 tab 02/15/21 Allergies Allergy/AdvReac Type Severity Reaction Status Date / Time No Known Allergies Allergy Verified 07/07/20 18:18 - Worker's Comp Is this a Worker's Comp case?: No [facility] History - Hepatitis A Screen
[2021-02-15 11:30] VITALS: BP 148/88; PULSE 82; RESP 18; TEMP 37.1; O2SAT 97
== END 2021-02-15 11:35 | disposition home or self-care (01) ==
PROVIDERS: Emergency Provider Nurse Practitioner; PCP Family Medicine
DX: J32.9 Chronic sinusitis, unspecified (principal); J02.9 Acute pharyngitis, unspecified
CPT/HCPCS: 87880; 99202; G0463

== ENCOUNTER 2021-04-06 22:49 | Emergency (ER) | payer OTHER, SELFPAY ==
[2021-04-06 22:50] VITALS: BP 166/92; PULSE 84; RESP 16; TEMP 36.8; O2SAT 97; BMI 27.3
--- NOTE | 2021-04-06 23:31 | HMH.EDGENADL ---
ED Disposition Clinical Impression: Urticaria Disposition: Home, Self-Care Condition on Discharge: Good Referrals: Young Estrada MD [Primary Care Provider] - - Critical Care Critical Care Time: No Attestation: On 04/06/21, the high probability of a clinically significant, sudden or life threatening deterioration of the following system(s) required my full and direct attention, intervention and personal management. The time I documented below is in addition to time spent performing reported procedures but includes the following listed in this critical care notation. Medical Decision Making - Fredis Inquiry Pt receiving controlled substance: No Vital Signs: 04/06/21 22:50 Temperature 98.2 F Temperature Source Oral Pulse Rate [Right Radial] 84 Respiratory Rate 16 Blood Pressure [Right Arm] 166/92 H Blood Pressure Mean [Right Arm] 116 Blood Pressure Source [Right Arm] Automatic Cuff Blood Pressure Position [Right Arm] Sitting 02 Sat by Pulse Oximetry 97 Oxygen Delivery Method Room Air Orders (Tests/Meds): ED MEDICATIONS Discontinued Medications Generic Name Dose Route Start Last Admin Trade Name Freq PRN Reason Stop Dose Admin Dexamethasone 10 mg 04/06/21 23:31 04/06/21 23:32 Dexamethasone 4mg Tablet PO 04/06/21 23:32 10 mg ONCE ONE Administration Famotidine 40 mg 04/06/21 23:31 04/06/21 23:33 Famotidine 20mg Tablet PO 04/06/21 23:32 40 mg ONCE ONE Administration Medical Decision Narrative: 41 yo male presents for evaluation of rash. History and physical exam consistent with urticarial rash, possible allergic reaction. No known trigger. Similar rash 20 years ago and 1 year ago, separate incidents without known common factor. Patient has single system involvement, does not require epinephrine for allergic reaction at this time. Pt is HDS, afebrile, NAD. Took benadryl at home already, will give patient 10 mg po decadron and 40 mg po famotidine. Patient on reassessment with improving rash, no other body systems involved, tolerating PO, remains HDS on room air. Given ED return precautions. General Adult HPI - General Chief complaint: Allergic Reaction Stated complaint: hives/rash possible allergic reaction Time Seen by Provider: 04/06/21 23:25 Mode of Arrival: Ambulatory Limitations: No Limitations Description of Symptoms (Recalled from ER Triage Doc. by RN): Pt says he is iching all over for the past hour. Pt had same episode in 2019. Pt has patent airway. Errythema to all extremities and trunk. - History of Present Illness HPI narrative: 41 yo male w/ hx HLD presents for rash. Patient reports noticing rash on arms and legs that seemed to spread to his whole body since about 9 pm tonight. Pt states the rash was itchy and raised and at times burning in sensation. This was accompanied by puffiness and tingling sensation in his lips. He took 2x tab benadryl prior to arrival with improvement of rash and resolution of the abnormal sensations in his lips. He has not had chest pain, n/v/d, trouble breathing, changes to jewelry/linens/soaps/medications/detergents/furniture/pets, but does note he ate brownies his son brought home around 8 pm that he had not eaten before. other family members ate the same brownies without similar symptoms. - Related Data Home Medications Medication Instructions Recorded Confirmed lovastatin 40 mg tablet 40 mg PO DAILY 01/23/19 04/06/21 Allergies Allergy/AdvReac Type Severity Reaction Status Date / Time No Known Allergies Allergy Verified 07/07/20 18:18 [facility] History - Hepatitis A Screen Drug use history?: No High risk sexual behaviors?: No History of sexually transmitted infection?: No Currently employed?: No Childcare worker?: No Do you have indoor plumbing?: Yes Do you have electricity?: Yes Attestation statement:: This patient has been screened for Hepatitis A risk factors. Medical History: Reports:: Hyperlipidemia De
[2021-04-07 00:16] VITALS: BP 134/89; PULSE 79; RESP 16; TEMP 37.2; O2SAT 98
== END 2021-04-07 00:17 | disposition home or self-care (01) ==
PROVIDERS: Emergency Provider Student in an Organized Health Care Education/Training Program; PCP Family Medicine
DX: L50.0 Allergic urticaria (principal); E78.5 Hyperlipidemia, unspecified
CPT/HCPCS: 99282

== ENCOUNTER 2021-04-20 18:00 | Emergency (ER) | payer OTHER, SELFPAY ==
[2021-04-20 18:20] VITALS: BP 138/90; PULSE 87; RESP 17; TEMP 36.9; O2SAT 100; BMI 27.3
--- NOTE | 2021-04-20 18:39 | HMH.EDUTC ---
[facility] [place] Disposition Clinical Impression: Acute viral syndrome Disposition: Home, Self-Care Condition on Discharge: Good Instructions: DI for Fever (Symptom) -- Adult, DI for COVID-19 (Suspected or Confirmed ), Preventing the Spread of Coronavirus Discharge Instructions Additional Instructions: *Monitor Temp, Over the counter Motrin or Tylenol as directed/as needed Tylenol every 4 hours and Motrin every 6 hours (as long as your family doctor has told you that you can take it) for fever or pain. and straight to ER if unable to lower temp less than 101.0 after medication given *Warm salt water gargles may help to soothe the throat *Throat Lozenges *Warm fluids like tea with honey may help to soothe the throat *Sleep elevated *Humidifier/Vaporizer Over the counter Robitussin may help with cough Your throat swab was sent for culture. Those results are typically sent to your primary care. Be sure to follow up in 2-3 days with your family doctor/primary care physician if no improvement so they can review those result and treat if necessary. If you don?t have a primary care doctor, I recommend you get one but in the mean time, you will have to return to a walk in clinic Follow up IMMEDIATELY for new or worsening symptoms or no Noticeable improvement over the next 48-72 hours. 911 for difficulty breathing or swallowing You were tested for today for COVID19 your test result should be back in the next 24-48 hours, you check your results on the [facility] my health portal if you have trouble logging on you may call for assistance to help you set up an account to see your results You was given a handout with instructions for Self Quarantine and Self isolation for while you wait on test results and what to do if they are positive If you are positive the Health Dept will be contacting you also Make sure to take your Vitamins Vit. C Vit D and Zinc if you can take them Referrals: Young Estrada MD [Primary Care Provider] - As needed Forms: Work/School Release Time of Disposition: 19:14 Medical Decision Making - Fredis Inquiry Pt receiving controlled substance: No Fredis was queried for this patient: No Vital Signs: 04/20/21 18:20 04/20/21 19:02 Temperature 98.4 F 98.4 F Temperature Source Oral Pulse Rate 87 Pulse Rate [Right Brachial] 87 Respiratory Rate 17 17 Blood Pressure 138/90 Blood Pressure [Right Arm] 138/90 Blood Pressure Mean [Right Arm] 106 Blood Pressure Source [Right Arm] Automatic Cuff Blood Pressure Position [Right Arm] Sitting 02 Sat by Pulse Oximetry 100 Oxygen Delivery Method Room Air - Lab Data Lab results reviewed: Yes: I reviewed the patient's lab results. Lab Results 04/20/21 18:10: Group A Strep Rapid Negative 04/20/21 18:33: Influenza Type A Ag Negative, Influenza Type B Ag Negative Orders (Tests/Meds): ORDERS Category Date Time Status Covid-19 Nasal PCR ([facility]) Routine Lab 04/20/21 18:10 Received Strep Screen Confirmation Stat Micro 04/20/21 18:10 Received [facility] UTC HPI - General Stated complaint: covid test strep test Time Seen by Provider: 04/20/21 18:39 Mode of Arrival: Ambulatory Source of Information: Patient Limitations: No Limitations Description of Symptoms (Recalled from Triage Doc. by RN): PATIENT C/O HEADACHE, BODY ACHES, CHILLS AND COUGH SINCE YESTERDAY HEENT Symptoms (Recalled from RN notes): Yes Resp Symptoms (Recalled from RN notes): Yes Skin Symptoms (Recalled from RN notes): No MS Symptoms (Recalled from RN notes): No Functional Status (Recalled from RN notes): WNL - History of Present Illness Provider Complaint: Patient states that his tested positive for COVID yesterday and then he is having bodyaches, chills, headache and cough last night States that today he has continued to have symptoms so he came in wanting to get tested - Related Data Home Medications Medication Instructions Recorded Confirmed lovastatin 40 mg tablet 40 mg PO DAILY 01/23/19 0
[2021-04-20 18:46] LABS: UTC Influenza A Antigen Negative (Negative); UTC Influenza B Antigen Negative (Negative)
[2021-04-20 19:02] VITALS: BP 138/90; PULSE 87; RESP 17; TEMP 36.9; O2SAT 100
[2021-04-20 19:09] LABS: Strep Scrn Group A (Rapid) Negative (Negative)
== END 2021-04-20 19:23 | disposition home or self-care (01) ==
PROVIDERS: Emergency Provider Nurse Practitioner; PCP Family Medicine
DX: B34.9 Viral infection, unspecified (principal); Z20.822 Contact with and (suspected) exposure to COVID-19
CPT/HCPCS: 87430; 87804; 99203; C9803; G0463; U0003; U0005

== ENCOUNTER 2023-11-26 09:22 | Emergency (ER) | payer BC, SELFPAY ==
[2023-11-26 09:30] VITALS: BP 132/82; PULSE 79; RESP 20; TEMP 36.8; O2SAT 99; BMI 27.3
--- NOTE | 2023-11-26 09:35 | EXP.UTC ---
Discharge Plan Disposition Patient Disposition: Home, Self-Care Condition: Good Prescriptions Prescriptions: New valacyclovir [Valtrex] 1 gram tablet 1,000 mg PO BID 10 Days Qty: 20 0RF methylprednisolone [Medrol (Aden)] 4 mg tablets,dose pack 4 mg PO DIRECTED Qty: 21 0RF lidocaine [Lidoderm] 5 % adhesive patch,medicated 1 patch topical DAILY Qty: 30 0RF Rx Instructions: leave on most painful area for up to 12 hrs No Action atorvastatin 40 mg tablet 40 mg PO DAILY Patient Comments: TAKE 1 TABLET BY MOUTH ONCE DAILY Referrals Follow up/Referrals: Young Estrada MD [Primary Care Provider] - See instructions Activity Restrictions/Add. Instructions Additional Instructions/Restrictions: Follow up with Dr Estrada if not improving Clinical Impressions Clinical Impression: Shingles, Close exposure to 2019-nCoV Instructions Patient Instructions: DI for Shingles Print Language Print Language: Amharic Discharge ED Provider: Niharika Marinelli [facility] General Stated complaint: poss shingles on left side/back covid exposure Time Seen by Provider: 11/26/23 09:35 History of Present Illness Provider Complaint: Rash on left lower back started last night. Now starting in left groin. Painful and itchy. Was also exposed to COVID earlier this week. Onset (ago): day(s) (1) Location: back Relieving factors: none Exacerbating factors: none Associated symptoms: denies other symptoms Treatments prior to arrival: none Related Data Home Medications ?Medication ?Instructions ?Recorded ?Confirmed atorvastatin 40 mg tablet 40 mg PO DAILY 06/28/23 11/26/23 Previous Rx's ?Medication ?Instructions ?Recorded lidocaine 5 % topical patch 1 patch topical DAILY #30 ea 11/26/23 (Lidoderm) methylprednisolone 4 mg tablets in 4 mg PO DIRECTED #21 tabs 11/26/23 a dose pack (Medrol (Aden)) valacyclovir 1 gram tablet 1,000 mg PO BID 10 days #20 tabs 11/26/23 (Valtrex) Allergies Allergy/AdvReac Type Severity Reaction Status Date / Time No Known Allergies Allergy Verified 06/28/23 13:24 [facility] Disclaimer: The information contained in this section may have been updated after the patient was seen, as this information can be updated by other users. Medical History (Updated 11/26/23 @ 09:46 by PAVAN Rosen) Family history of heart disease Chest pain Dyspnea HLD (hyperlipidemia) Surgical History (Updated 11/26/23 @ 09:42 by Sharmaine Campos RN) History of appendectomy Family History (Updated 06/28/23 @ 13:25 by Rashid Mcdermott) No significant family history Social History Smoking Status: Never smoker alcohol intake: never substance use type: denies use current occupational status: other Travel in the last 8 weeks: None ROS Obtained: Yes All systems reviewed & no additional complaints except as documented Integumentary/Breasts Skin/Breast: Reports pruritus, Reports rash and Reports skin pain Physical Exam General General appearance: alert and in no apparent distress Neck Neck exam: Present normal inspection, full ROM and trachea midline; Absent meningismus or lymphadenopathy Chest Chest inspection: Present normal inspection and symmetric chest wall rise; Absent tenderness Respiratory Respiratory exam: Present normal lung sounds bilaterally; Absent respiratory distress Cardiovascular Cardiovascular exam: Present regular rate and normal rhythm Extremities Exam Extremities exam: Present normal inspection, full ROM and normal capillary refill; Absent calf tenderness Neurological Exam Neurological exam: Present alert and oriented X3 Psychiatric Psychiatric exam: Present normal affect and normal mood Skin Skin exam: Present warm, dry, intact, normal color and rash (vesicular rash left lower back) Lymphatic Lymphatic Findings: no adenopathy Medical Decision Making Fredis Inqu
[2023-11-26 09:45] VITALS: BP 132/82; PULSE 79; RESP 20; TEMP 36.8; O2SAT 99
[2023-11-26 09:53] LABS: Coronavirus 19, PCR Not Detected (NotDetected); Influenza A, PCR Not Detected (NotDetected); Influenza B, PCR Not Detected (NotDetected)
== END 2023-11-26 09:47 | disposition home or self-care (01) ==
PROVIDERS: Emergency Provider Physician Assistant; PCP Family Medicine
DX: B02.9 Zoster without complications (principal)
CPT/HCPCS: 87636; 99212; 99214; G0463